=== PATIENT | male | born 1995 | race Two or more races ===

== ENCOUNTER 2023-04-12 08:35 | Outpatient (REF) | payer BC, SELFPAY ==
--- NOTE | 2023-04-12 | PFT_ITS ---
FLOWS: 1. FEV1 106% of predicted at 4.70 L. 2. FVC 99% of predicted at 5.9 L. 3. FEV1 to FVC ratio of 0.89. 4. No bronchodilator response. LUNG VOLUMES: 1. Total lung capacity 84% of predicted at 6.93 L. 2. Residual volume 89% of predicted at 1.56 L. 3. Expiratory reserve volume 12% of predicted at 0.27L. 4. Slow vital capacity 85% of predicted at 5.37 L. 5. Diffusion capacity is normal. IMPRESSION: No obstructive or restrictive ventilatory defect. No bronchodilator response except in small to medium airways. Otherwise, essentially normal pulmonary function test. Sharan Blackman MD AP/MODL / [id number]
== END 2023-04-12 08:36 | disposition home or self-care (01) ==
LOC: HO.RESP 08:35
PROVIDERS: Visit Provider Internal Medicine
DX: R94.2 Abnormal results of pulmonary function studies (principal)
CPT/HCPCS: 94010; 94727; 94729

== ENCOUNTER → 2023-04-12 08:40 | Outpatient (BNV) | payer BC, SELFPAY | PROVIDERS: Visit Provider Internal Medicine Pulmonary Disease | DX: R94.2 Abnormal results of pulmonary function studies (principal) | CPT/HCPCS: 94060; 94727; 94729 ==